=== PATIENT | male | born 1950 | race Caucasian/White ===

== ENCOUNTER → 2017-10-27 07:54 | Outpatient (CLI) | payer OTHER, SELFPAY ==
[2017-10-27 09:33] LABS: Cholesterol 135 mg/dL (200); Glucose 82 mg/dL (74-106); High Density Lipoprotein 40 mg/dL; Triglycerides 135 mg/dL; Very Low Density Lipoprotein 27 mg/dL (5-40)
[2017-10-29 09:31] LABS: Vitamin B12 1278 pg/mL (211-911)
== END ==
PROVIDERS: Family Provider Family Medicine; PCP Family Medicine; Visit Provider Family Medicine
DX: E53.8 Deficiency of other specified B group vitamins (principal); Z13.220 Encounter for screening for lipoid disorders; Z13.1 Encounter for screening for diabetes mellitus
CPT/HCPCS: 36415; 80061; 82607; 82947

== ENCOUNTER → 2019-02-26 15:16 | Outpatient (CLI) | payer OTHER, SELFPAY ==
[2017-03-28 05:25] VITALS: BMI 29.3
--- NOTE | 2019-02-26 15:20 | RAD_ITS ---
STUDY: X-RAY - RIGHT KNEE REASON FOR EXAM: Male, 69 years old. Medial and anterior pain. Arthroscopy one year ago. TECHNIQUE: 4 view(s) of the knee. COMPARISON: None. FINDINGS: Normal visualized distal femur. Normal visualized proximal tibia and fibula. Normal proximal tibiofibular articulation. There is no acute fracture, dislocation or destructive osseous pathology. There is moderate degenerative arthrosis of the medial femorotibial compartment with moderate joint space narrowing. There is mild degenerative arthrosis of the lateral femorotibial compartment. There are calcifications within the lateral meniscus. There is mild degenerative arthrosis of the patellofemoral articulation. There is no demonstrated joint effusion. The soft tissue structures are unremarkable. RAD/Knee 4 or More Views IMPRESSION: Degenerative arthrosis. Electronically Signed: Dawit Llanos DO at 22:37 EDT Tel [phone], Service support ,
== END ==
PROVIDERS: Family Provider Family Medicine; PCP Family Medicine; Referring Provider Family Medicine; Visit Provider Family Medicine
DX: M17.11 Unilateral primary osteoarthritis, right knee (principal)
CPT/HCPCS: 73564

== ENCOUNTER → 2020-05-03 13:33 | Outpatient (CLI) | payer OTHER, SELFPAY ==
--- NOTE | 2020-05-03 13:50 | CT_ITS ---
STUDY: CT RIGHT LOWER EXTREMITY REASON FOR EXAM: Right knee arthrosis, surgical planning. TECHNIQUE: Transaxial CT imaging of the lower extremity was performed. Coronal and sagittal images were reformatted. Individualized dose optimization techniques were used for this CT. COMPARISON: Radiographs 02/26/2019. FINDINGS: Knee: There is moderate joint space narrowing of the medial femorotibial compartment with subchondral cystic change of the medial tibial plateau (coronal reconstructions 23-27). There is intramedullary scarring from previous femoral nayeli. There is preservation of the articular joint space of the lateral knee compartment. There is mild joint space narrowing of the patellofemoral articulation (axial image 255). There is a small subchondral cyst in the head of the fibula at the proximal tibiofibular articulation. There is a small joint effusion. The quadriceps tendon is grossly normal. There is an enthesophyte at the superior pole of the patella The patellar tendon is grossly normal. Normal Hoffa''s fat pad. There is chondrocalcinosis in the menisci. There is a calcification in the proximal medial collateral ligament (coronal reconstruction 26) from remote injury. Hip: There is moderate joint space narrowing at the superior lateral aspect of the right hip (coronal reconstruction 48). There is scarring in the visualized proximal right femur from prior intramedullary nayeli. Ankle: Normal tibiotalar, posterior subtalar and calcaneocuboid articulations. There is mild joint space narrowing of the talonavicular articulation (sagittal reconstruction 35). There are ossicles of the distal aspect of the medial malleolus (coronal reconstruction 26). There is a posterior calcaneal enthesophyte (sagittal reconstruction 37) and a small plantar calcaneal enthesophyte (sagittal reconstruction 37). CT/Extremity Lower without Contra IMPRESSION: Arthrosis of the medial femorotibial and patellofemoral compartments of the right knee. Small right knee joint effusion. Electronically Signed: Stephen Delgadillo MD at 14:59 EDT Tel , Service support ,
== END ==
PROVIDERS: PCP Family Medicine; Referring Provider Specialist; Visit Provider Specialist
DX: M17.11 Unilateral primary osteoarthritis, right knee (principal); M21.161 Varus deformity, not elsewhere classified, right knee
CPT/HCPCS: 73700

== ENCOUNTER → 2020-05-07 13:33 | Outpatient (CLI) | payer OTHER, SELFPAY ==
[2017-03-28 05:25] VITALS: BMI 29.3
[2020-05-07 15:36] LABS: Absolute Lymphocyte Count 2.16 X10^3/uL (0.83-4.51); Absolute Neutrophil Count 2.5 X10^3/uL (2.0-7.7); Basophil# 0.06 X10^3/uL; Basophil% 1.1 % (0-1); Eosinophils% 1.8 % (0-5); Hematocrit 49.4 % (40-54); Hemoglobin 15.8 g/dL (13.0-16.5); Lymphocyte # 2.16 X10^3/ul (4.0); Lymphocyte % 39.5 % (19-41); Mean Corpuscular Hgb 31.2 pg (27.0-32.0); Mean Corpuscular Volume 97.6 fL (80-94); Mean Platelet Vol. 8.9 fl (6.2-12.0); Monocyte# 0.63 X10^3/uL; Monocyte% 11.5 % (0-10); NRBC Flagged by Analyzer 0 % (0-5); Neutrophil # 2.52 X10^3/uL (2.7-7.7); Neutrophil % 46.1 % (47-70); Platelet Count 182 K/mm3 (150-450); RBC Distribution Width CV 12.6 % (11.6-14.6); RBC Distribution Width SD 45.2 fl (35.1-43.9); Red Blood Count 5.06 M/mm3 (4.6-6.2); White Blood Count 5.5 K/mm3 (4.4-11.0)
[2020-05-07 16:14] LABS: Anion Gap 6 (5-15); BUN 21 mg/dL (7-18); BUN/Creat Ratio 17.6 RATIO (10-20); Calcium,Total 9.5 mg/dL (8.5-10.1); Chloride 110 mmol/L (98-107); Creatinine, Serum 1.19 mg/dL (0.70-1.30); EST Glomerular Filtration Rate 64 mL/min (>60); Est Glom Filt Rate - Afr Amer 78 mL/min (>60); Glucose 87 mg/dL (74-106); Potassium 3.6 mmol/L (3.5-5.1); Sodium Level 143 mmol/L (136-145)
== END ==
PROVIDERS: PCP Family Medicine; Visit Provider Family Medicine
DX: Z01.818 Encounter for other preprocedural examination (principal); M17.11 Unilateral primary osteoarthritis, right knee
CPT/HCPCS: 36415; 80048; 85025

== ENCOUNTER 2020-05-19 06:52 | Day surgery (SDC) | payer OTHER, SELFPAY ==
[2017-03-28 05:25] VITALS: BMI 29.3
--- NOTE | 2020-05-03 11:57 | HP.PCM_ITS ---
History and Physical History and Physical Patient Name: Dante Herring : 1950 From: [facility] NP DATE OF SURGERY: 05/19/2020 SCHEDULED PROCEDURE: Right total knee arthroplasty HISTORY OF PRESENT ILLNESS: Preoperative history and physical exam was performed on May 03, 2020. This is a 70-year-old male who has been experiencing right knee pain for the last 5 years. The pain is 3 on a scale of 10. The pain is made worse with stairs, walking and sitting for prolonged periods of time. The patient does report start up pain. The pain is located over the medial joint line. The patient notes grinding in the right knee. He denies numbness and tingling. The patient reports inability to perform activities of daily living without pain. Previous conservative treatment measures consist of corticosteroid and viscosupplementation injections with minimal, short term relief. He has attempted Tylenol and nonsteroidal anti-inflammatories with no relief. The patient denies any pertinent medical history. Surgical clearance will be obtained from his primary care provider Dr. Bentley. He denies chest pain, fevers, chills, shortness breath, difficulty breathing or recent infections. After failing conservative measures and discussing treatment options with Dr. Kimani Ovalles the patient does wish to proceed with a right total knee arthroplasty. REVIEW OF SYSTEMS: ROS: Const: Denies change in appetite, fever and weight change. CV: Denies chest pain, heart murmur and irregular heartbeat. Resp: Denies cough, pneumonia, shortness of breath, tuberculosis and wheezing. GI: Denies constipation, diarrhea, heartburn, nausea, rectal itching, bloody stools and vomiting. : Denies incontinence. Musculo: Denies leg swelling, pain, trouble walking and weakness. Skin: Reports tattoo, but denies Raynaud's and history of shingles. Neuro: Denies ambulatory dysfunction, dizziness, numbness/tingling and tremor. Psych: Denies anxiety, insomnia and stress. Nikhil/Lymph: Denies anemia, bleeding/bruising tendency and past transfusion. Reviewed, no changes. PAST MEDICAL HISTORY: Advance Care Plan: No Advance Directives Effective Date: 04/03/2019 PMH: Medical Problems: No Current Problems Accidents: 2 Toe FX'S, RT Femur FX Surgical Hx: LT Knee Arthroscopy - (1987) RT Femur ORIF - (1988) HARD REMOVED 1990S RT 3 Toe Pinning Anesthesia Complications: None Assistive Devices: Glasses, Dentures Reviewed, no changes. SOCIAL HISTORY: SH: Marital: .Occupation: Retired.Work Status: Retired.Hand Dominance: Right- handed. Personal Habits: Cigarette Use: Former.Smokeless Tobacco: Never Used Smokeless Tobacco.E-Cigarette Use: Never used.Alcohol: Occasionally.Drug Use: Denies Use.Enjoy Exercising: Never Exercises. Reviewed, no changes. VITALS: Ht: 65 Wt: 172lb 4oz Wt k.133 BMI: 28.7 BP: 140/80 Pulse: 82 Resp: 22 T: 97.6 T: 36.4C Pain Level: 2 ALLERGIES: No Known Drug Allergy MEDICATIONS: Oxycodone HCL 5 mg 1-2 tab by mouth every 4 hours, Meloxicam 7.5 mg 1 by mouth twice a day, Promethazine HCL 12.5 mg 1-2 tablets by mouth every 6 hours, Famotidine 20 mg 1 by mouth every day, Transderm Scop (1.5 MG) 1 MG/3Days 1 patch behind ear every 3 days, Aleve 220 mg 1 tablet by mouth once a day, Vitamin D 1000 Unit 1 daiy, Protien Drink for faster healing after surgery PRE-OP EXAM: General appearance:NORMAL Other: Eyes: Conjunctivae and lids: NORMAL Pupils: ERR Ears, Nose, Mouth, and Throat: NORMAL Other: Inspection of lips, teeth and gums: NORMAL Other: Respiratory: Assessment of respiratory effort: NORMAL Other: Auscultation of lungs: clear to auscultation no wheezes, rhonchi or rales. Cardiovascular: Auscultation of heart: regular rate and rhythm, no murmurs, gallops or rubs. Gastrointestinal: Exam of abdomen: soft, nontender, nondistended bowel sounds present. Neurological: see below Psychiatric: Orientation to time, place and person: NORMAL Other: Mood and affect: NORMAL Other: PHYSICAL EXAMINATION: The patient relates with an antalgic gait. Mild effusion. Skin is warm, dry and intact. Varus alignment of the right knee. Medial joint line tenderness with palpation. Range of motion: Full extension to 123 flexion. Correctable varus alignment. Mild atrophy in the right leg when compared to the left. Sensation in touch to saphenous, sural, deep and superficial peroneal and tibial nerve distributions. IMAGING STUDIES: 4 views of right knee including sunrise and lateral and bilateral weight-bearing AP and tunnel views obtained on February 16, 2020 reviewed reveals the right knee with varus alignment. There is medial joint space narrowing, subchondral sclerosis and osteophyte formation consistent with severe stage IV osteoarthritis. There is chondrocalcinosis of the lateral compartment consistent with pseudogout. IMPRESSION: 1. Osteoarthritis, right knee 2. Varus deformity, right knee PLAN: Dr. Kimani Ovalles did discuss and review with the patient all treatment options including surgical versus nonsurgical. The patient does wish to proceed with the above-stated procedure. Potential risk, benefits and complications of the procedure were discussed in detail including but not limited to , infection, nerve and blood vessel damage, persistent pain, numbness, tingling, paresthesia, blood clot, pulmonary embolism and requirement for possible further surgery. The patient expressed full understanding and has no further questions for the doctor. The patient does agree to proceed with the above-stated procedure and has signed the surgery consent form. The patient was given prescriptions for the following medications at his preoperative visit: Famotidine, meloxicam, oxycodone, promethazine and a scopolamine patch. He was instructed to hot die picker [id number] extra strength Tylenol 500 mg, aspirin 81 mg and Senokot. The patient was instructed to bring a walker with him to the hospital the day of surgery. Discussed with the patient the risks associated with the COVID-19 virus including the risk of exposure while at the hospital. The patient was reassured local hospitals have low infection rates and taken all necessary precautions to limit patient exposure to COVID-19. Limiting the patient's time in the hospital may decrease their exposure to COVID-19. The patient was notified that we will need to comply with any screening or testing the hospital wishes to perform and that surgery may be delayed for any positive test results. This dictation was created using voice recognition software. Phonetic and/or grammatical errors may exist. ___ I have re-examined the patient. There are no clinical changes since date of exam. ___ See progress notes for changes. ___ Dictated on admission Date: Time: Signature:
[2020-05-12 14:37] LABS: Magnesium 2.3 mg/dL (1.6-2.6)
[2020-05-19] VITALS (13 sets, daily range): BP systolic 112–161; BP diastolic 58–93; PULSE 40–86; RESP 16–18; TEMP 36.1–36.6; O2SAT 97–100; BMI 27.0
[2020-05-19] MEDS: Acetaminophen 500 MG Tablet 1000 MG PO (07:14)
[2020-05-19] MEDS: Gabapentin 600 MG Tablet PO (07:14)
--- NOTE | 2020-05-19 07:15 | RAD_ITS ---
STUDY: X-RAY - RIGHT KNEE REASON FOR EXAM: Male, 70 years old. POST OP TECHNIQUE: 2 view(s) of the knee. COMPARISON: 02/26/2019. Findings: There is a recent total knee arthroplasty. The femoral and tibial components appear in satisfactory position. There has been patellar resurfacing. There is soft tissue air consistent with recent surgery. The visualized femoral, tibial, and fibular shafts are unremarkable. RAD/Knee 1 or 2 Views IMPRESSION: Satisfactory appearance of a total knee arthroplasty. Electronically Signed: Weston Florez MD at 17:22 EST , Service support ,
[2020-05-19] MEDS: Lactated Ringers 1,000 ML 100 ML IV (07:25)
[2020-05-19 07:35] LABS: Bedside Glucose 90 mg/dL (70-110)
[2020-05-19] MEDS: Lactated Ringers 1,000 ML 999 ML IV (08:30)
[2020-05-19] MEDS: Lactated Ringers 1,000 ML 125 ML IV (08:30)
[2020-05-19] MEDS: Cefazolin 2 GM in 0.9% Normal Saline 100 ML IV (08:48)
[2020-05-19] MEDS: dexAMETHasone 10 MG/ML Vial IV (08:56)
--- NOTE | 2020-05-19 10:18 | PCM.OPRPT ---
Report of Operation Date of Procedure: 05/19/20 Pre-Operative Diagnosis: Right knee primary osteoarthritis Post-Operative Diagnosis: Right knee primary osteoarthritis Surgery/Procedure Performed:: Right knee minimally invasive robotic assisted total knee replacement Description of Surgical Findings:: Stable knee with good patella tracking vasc tech: Parul Jay Type of Anesthesia:: Spinal Anesthesiologist: Ramiro Ramirez Special Medications: 2 g Ancef, 1 g TXA at incision, 1 g TXA closure, 10 mg Decadron, joint cocktail (5 mg Duramorph, 30 mL of 0.5% Ropivicaine, 1000 units of epinephrine, 30 mg of Toradol) Specimen's removed: Bony cuts Estimated Blood Loss (mL): 50 Fluids Replaced: 1000 mL crystalloid Description of Procedure: Implants used: 1. [place] size 5 triathlon cruciate retaining distal femoral press-fit component 2. Marizol size 6 press-fit tritanium tibial baseplate 3. Marizol X3 9 mm CS polyethylene 4. [place] X3 35 mm asymmetric patella Brief history operative indications: 70-year-old m with history of right knee osteoarthritis with radiographic findings with loss of joint space, osteophyte formation and subchondral sclerosis. Failed conservative measures as mentioned in the H&P. Discussion of total knee arthroplasty as well as risk and benefits were discussed the patient including but not limited to blood loss, DVTs, PEs, neurovascular damage, general risk of anesthesia including loss of life, and stiffness or instability were discussed with patient. Patient demonstrated understanding and was able to sign informed consent. Procedure: On the date of procedure patient's right lower extremity was marked in the preoperative area. The patient was then taken back to the operating room where the patient was placed on the table in the supine position. All bony prominences were identified a well-padded. Anesthesia assumed control of the C-spine and airway and remained controlled throughout the remainder of the procedure. A tourniquet was placed on the right upper thigh and the leg was prepped in a sterile fashion. The surgeon then scrubbed at this time .Upon reentering the room right lower extremity was draped in a standard orthopedic fashion. A timeout was then called and everyone agreed upon the side, the site, the procedure to be performed, patient's identity and antibiotics given. Esmarch bandage was used to exsanguinate the extremity and the tourniquet was placed up to 250 mmHg with the knee in flexion. A midline skin incision was made and sharp dissection was taken down through skin subcutaneous tissue and fat. The standard medial parapatellar incision was made and the patella was subluxed laterally. An Appropriate deep MCL release was done and the fat pad was resected. Our attention was then directed to the patella. The patella was everted and a flat resection was made. The knee was then flexed up in 2 femoral pins were placed inside the incision and 2 tibial pins were placed outside the incision in the medial tibia bicortically. Once this was completed the 2 checkpoints in the femur and tibia were placed. Knee was then flexed up and the bony landmarks were registered. Once this was completed knee was taken through range of motion and manually stressed allowing us to a plan for an appropriate tibial cut. The robotic arm was brought into the field sterilely and checkpoint and saw were registered. Based on the patient's deformity the tibial cut was made 2 degrees varus. At this time the tensioner was then placed in the joint and ligament tension was checked at 90 degrees and full extension. Based on the patient's ligamentous tension appropriate adjustments were made to the operative plan and ligament releases were done. Once we were happy with our operative plan with balanced flexion and extension gaps our attention was directed to the femur. The robot was brought into the field sterilely and registered. Posterior condylar cuts, anterior chamfer cuts and anterior cuts were appropriately made for a size 5 femur. When these were completed the saws were switched out in the distal femoral and posterior chamfer cuts were made. Protecting the soft tissue throughout this time. A size 6 tibial base plate was selected. the knee was flexed to 90 degrees and the soft tissues and posterior osteophytes were removed from the joint. 40 cc of the periarticular injection was injected into the posterior medial corner of the joint. The appropriate trials were then placed on the femur and tibia. A trial polyethylene was trialed to ensure proper balancing and stability of the knee. The appropriate tibial internal rotation was then marked with a bovie. Our attention was then directed to the patella. The lug holes were drilled and the patella trial was placed. Patellar tracking was checked and deemed appropriate. Once we were happy lug holes were drilled for the femur and trial components were removed. the tibia was subluxed and pinned into place and the keel was punched and drilled appropriately. Final components were verified and opened, and cement was mixed in a vacuum. [employer] Simplex cement was used. The wound was copiously irrigated with normal saline. When the cement was ready the components were impacted into place starting with the tibia, femur and finally cementing the patella. The trial poly component was placed and the knee was placed in full extension. All excess cement was removed in the process. Once the cement had cured the tracking, alignment and balance were verified and a size 9 mm CS polyethylene component was placed. Once the final components were placed an Irrisept lavage was performed and the wound was copiously irrigated with normal saline solution and the periarticular injection was given. The wound was closed in a layer bashir fashion using #1 vicryl interrupted sutures for the arthrotomy, 2-0 interrupted Vicryl suture for the subcuticular layer and iliana for final skin closure. A sterile compressive dressing was then placed. The patient was then awakened from anesthesia, transferred to [facility] and transferred to the PACU for recovery. Post op plan DVT ppx: ASA 81mg BID, thigh high compression stockings Follow up: in office in 2 weeks for wound check PT: to start POD #0 at hospital, outpatient PT should be arranged. Due to the complexity of this case robotic arm was used to assist in the surgery to improve accuracy and clinical outcomes. - Complications No intraoperative complications - Admit VTE Documentation VTE Present on Admission: No VTE Mechan Device Prophylaxis: SCD's, Thigh High EDIE Hose VTE Pharm Prophylaxis ordered?: Yes
--- NOTE | 2020-05-19 11:45 | SUR.PHASEI ---
This nurse notified dr. galdamez about patient's pulse running in the low 40's while the patient was a sleep. Currently patient is taking ice chips and heart rate is in the 60's with a occasional PVC.
[2020-05-19] MEDS: Cefazolin 1 GM/50 ML BAG IV (13:04)
== END 2020-05-19 17:14 | disposition home or self-care (01) ==
LOC: SDC 06:52 → AC 06:53
PROVIDERS: Anesthesiology; PCP Family Medicine; Referring Provider Specialist; Visit Provider Specialist
PROC: 0SRC0JZ Replacement of Right Knee Joint with Synthetic Substitute, Open Approach (ICD-10-PCS; CPT 27447; principal; 2020-05-19 08:30)
DX: M17.11 Unilateral primary osteoarthritis, right knee (principal); M21.161 Varus deformity, not elsewhere classified, right knee; Z79.1 Long term (current) use of non-steroidal anti-inflammatories (NSAID); Z87.891 Personal history of nicotine dependence
CPT/HCPCS: 27447; 64447; S2900; 73560; 82962; 83735; 87081; 87635; 97162; 97166; C1776; C9803; J7120; J2405; U0003

== ENCOUNTER → 2020-06-02 14:24 | Outpatient (CLI) | payer OTHER, SELFPAY ==
[2020-05-19 07:16] VITALS: BMI 27.0
--- NOTE | 2020-06-02 14:25 | VDLE_ITS ---
Reason For Study: pain RIGHT GSV is normal. CFV is compressible, spontaneous, phasic, competent and demonstrates normal augmentation. FV is compressible, spontaneous, phasic, competent and demonstrates normal augmentation. POP V is compressible, spontaneous, phasic, competent and demonstrates normal augmentation. T/P Trunk is compressible. PTV is compressible. RT PerV is compressible. Procedure This is a venous duplex using B-mode, color flow and spectral Doppler. Exam performed in department. The exam was abbreviated due to the COVID 19 protocol. The exam was diagnostic. A preliminary report was called and/or faxed to Amanda at [facility]. Interpretation Summary Deep veins of the right lower extremity are patent and compressible segmentally. There is no evidence of right lower extremity deep vein thrombosis. Valvular competence appears intact within the proximal deep venous system on the right . The right great saphenous vein appears patent and compressible segmentally. Ordering Physician: Keeley Quezada Performed By: Rodolfo Hooks RVT
== END ==
PROVIDERS: PCP Family Medicine; Referring Provider Registered Nurse; Visit Provider Registered Nurse
DX: M79.661 Pain in right lower leg (principal)
CPT/HCPCS: 93971